=== PATIENT | male | born 1975 | race Caucasian/White ===

== ENCOUNTER 2016-09-02 22:00 | Emergency (ER) | payer SELFPAY ==
[~2016-09-02] VITALS: Ht 190.5 cm; Wt 69.9 kg
[2016-09-02] MEDS ORDERED: IV NORMAL SALINE 1,000ML 1,000 ML ONE (22:12)
--- NOTE | 2016-09-02 22:28 | PHYS DOC ---
Adult General Chief Complaint Chief Complaint: hematemesis HPI HPI Patient is a 40 year old male who presents with complaint of hematemesis. Patient states his symptoms started less than an hour prior to arrival. Patient states that he has been outdoors for several hours the past few days. Patient states that he started feeling very fatigued earlier today and felt like he needed to rest. Patient states that he felt like he was getting dehydrated and overheated. Patient states that starting 45 minutes prior to arrival he had 2 episodes of emesis, the first being food and the second being bile. Patient states after the third and fourth episode he started having coffee-ground emesis and fresh red blood in his vomit. Patient had an episode of vomiting in the emergency department which appears to be coffee-ground emesis at this time. Patient has had no previous history of upper GI bleeding and denies any history of liver problems. Patient is not on any tenderness at this time. Patient states that the pain in his upper abdomen is sharp and rates his pain as 6-7 out of 10. Review of Systems Review of Systems Constitutional: Fatigue, denies fever or chills [] Eyes: Denies change in visual acuity, redness, or eye pain [] HENT: Denies nasal congestion or sore throat [] Respiratory: Denies cough or shortness of breath [] Cardiovascular: Denies chest pain or edema [] GI: Abdominal pain, hematemesis, denies bloody stools or diarrhea [] : Denies dysuria or hematuria [] Musculoskeletal: Denies back pain or joint pain [] Integument: Denies rash or skin lesions [] Neurologic: Denies headache, focal weakness or sensory changes [] Current Medications Current Medications Current Medications Medications (Trade) Dose Ordered Sig/William Start Time Stop Time Status Last Admin Dose Admin Famotidine (Pepcid) 20 mg 1X ONCE 09/02/16 22:15 09/02/16 22:16 UNV Fentanyl Citrate (Fentanyl 2ml Vial) 50 mcg PRN Q15MIN PRN 09/02/16 22:15 09/03/16 22:14 UNV Ondansetron HCl (Zofran) 4 mg 1X ONCE 09/02/16 22:15 09/02/16 22:16 UNV Sodium Chloride 1,000 ml @ 1,000 mls/hr Q1H 09/02/16 22:14 09/02/16 23:13 UNV Allergies Allergies Allergies Coded Allergies Type Severity Reaction Last Updated Verified Penicillins Allergy Intermediate 09/02/16 Yes morphine Allergy Intermediate 09/02/16 Yes Physical Exam Physical Exam Constitutional: Alert, afebrile, appears ill. [] HENT: Normocephalic, atraumatic, bilateral external ears normal, oropharynx moist, no oral exudates, nose normal. [] Eyes: PERRLA, EOMI, conjunctiva normal, no discharge. [] Neck: Normal range of motion, no tenderness, supple, no stridor. [] Cardiovascular:Heart rate regular rhythm, no murmur [] Lungs & Thorax: Bilateral breath sounds clear to auscultation [] Abdomen: Bowel sounds normal, soft, epigastric tenderness to palpation with guarding, no rebound tenderness, no masses, no pulsatile masses. [] Skin: Warm, dry, no erythema, no rash. [] Back: No tenderness, no CVA tenderness. [] Extremities: No tenderness, no cyanosis, no clubbing, ROM intact, no edema. [] Neurologic: Alert and oriented X 3, normal motor function, normal sensory function, no focal deficits noted. [] Current Patient Data Vital Signs Vital Signs Date Time Temp Pulse Resp B/P (MAP) Pulse Ox O2 Delivery O2 Flow Rate FiO2 09/02/16 22:10 98.0 66 18 99 Room Air Lab Results Laboratory Tests Test 09/02/16 22:12 White Blood Count 15.4 x10^3/uL Red Blood Count 4.15 x10^6/uL Hemoglobin 13.2 g/dL Hematocrit 39.1 % Mean Corpuscular Volume 94 fL Mean Corpuscular Hemoglobin 32 pg Mean Corpuscular Hemoglobin Concent 34 g/dL Red Cell Distribution Width 13.6 % Platelet Count 236 x10^3/uL Neutrophils (%) (Auto) 77 % Lymphocytes (%) (Auto) 15 % Monocytes (%) (Auto) 6 % Eosinophils (%) (Auto) 2 % Basophils (%) (Auto) 1 % Neutrophils # (Auto) 11.9 x10^3uL Lymphocytes # (Auto) 2.3 x10^3/uL Monocytes # (Auto) 0.9 x10^3/uL Eosinophils # (Auto) 0.2 x10^3/uL Basophils # (Auto) 0.1 x10^3/uL Platelet Estimate Pending Prothrombin Time 10.2 SEC Prothromb Time International Ratio 1.0 Activated Partial Thromboplast Time 24 SEC Sodium Level 140 mmol/L Potassium Level 3.6 mmol/L Chloride Level 106 mmol/L Carbon Dioxide Level 26 mmol/L Anion Gap 8 Blood Urea Nitrogen 25 mg/dL Creatinine 1.0 mg/dL Estimated GFR (Cockcroft-Gault) 82.8 BUN/Creatinine Ratio 25 Glucose Level 99 mg/dL Calcium Level 8.2 mg/dL Total Bilirubin 0.4 mg/dL Aspartate Amino Transf (AST/SGOT) 32 U/L Alanine Aminotransferase (ALT/SGPT) 27 U/L Alkaline Phosphatase 99 U/L Total Protein 7.2 g/dL Albumin 4.0 g/dL Albumin/Globulin Ratio 1.3 Lipase 220 U/L Current Medications Medications (Trade) Dose Ordered Sig/William Route PRN Reason Start Time Stop Time Status Last Admin Dose Admin Sodium Chloride 1,000 ml @ As Directed STK-MED ONCE .ROUTE 09/02/16 22:12 09/02/16 22:13 DC Fentanyl Citrate (Fentanyl 2ml Vial) 50 mcg PRN Q15MIN PRN IV PAIN GREATER THAN 3/10 09/02/16 22:15 09/03/16 22:14 09/02/16 23:11 Sodium Chloride 1,000 ml @ 1,000 mls/hr Q1H IV 09/02/16 23:00 09/02/16 23:59 09/02/16 22:30 Ondansetron HCl (Zofran) 4 mg 1X ONCE IV 09/02/16 23:00 09/02/16 23:01 DC 09/02/16 22:33 Famotidine (Pepcid) 20 mg 1X ONCE IVP 09/02/16 23:00 09/02/16 23:01 DC 09/02/16 22:33 Sodium Chloride 1,000 ml @ 1,000 mls/hr Q1H IV 09/02/16 23:01 09/03/16 00:00 09/02/16 23:01 Multi-Ingredient Mouthwash/Gargle (Gi Cocktail) 20 ml 1X ONCE PO 09/02/16 23:30 09/02/16 23:31 Metoclopramide HCl (Reglan) 10 mg 1X ONCE IV 09/02/16 23:15 09/02/16 23:16 UNV 09/02/16 23:11 Pantoprazole Sodium (Protonix Vial) 40 mg 1X ONCE IVP 09/02/16 23:15 09/02/16 23:16 UNV 09/02/16 23:12 EKG EKG Interpreted by me: Heart rate 64, sinus rhythm, normal intervals, normal axis, no acute ST/T-wave abnormalities present [] Radiology/Procedures Radiology/Procedures 3 view acute abdominal series interpreted by me: No pulmonary or effusions, no free air under the diaphragm, nonobstructive bowel gas pattern [] Course & Med Decision Making Course & Med Decision Making Pertinent Labs and Imaging studies reviewed. (See chart for details) Patient initially treated with IV fentanyl, Pepcid, fluids, and Zofran. After treatment, the patient had further episodes of emesis and is now passing bright red blood in his emesis. Due to persistent symptoms and possible for continued GI bleeding, the patient will need admission to the hospital for further evaluation and treatment. The patient will need a higher level of care as [facility] is unable to accommodate the patient for any possible need for emergent EGD. I spoke with Dr. Phan at [facility] who accepted the care of patient for transfer. Patient will be transferred by ground EMS. Dragon Disclaimer Dragon Disclaimer This chart was dictated in whole or in part using Voice Recognition software in a busy, high-work load, and often noisy Emergency Department environment. It may contain unintended and wholly unrecognized errors or omissions. Departure Departure: Impression: Primary Impression: Acute upper GI bleeding Disposition: XFER OTHER Condition: GUARDED Referrals: PCP,NO (PCP) RICARDA DANIELS MD Sep 02, 2016 22:28
[2016-09-02] MEDS: fentaNYL PF 100 MCG/2 ML VIAL IV PRN ×2 (22:33→23:11)
[2016-09-02 22:34] LABS: BASO # 0.1 x10^3/uL (0.0-0.2); BASO % 1 % (0-3); EOS # 0.2 x10^3/uL (0.0-0.7); EOS % 2 % (0-3); HEMATOCRIT 39.1 % (39.0-53.0); HEMOGLOBIN 13.2 g/dL (13.0-17.5); LYMPH # 2.3 x10^3/uL (1.0-4.8); LYMPH % 15 % (24-48); MEAN CORPUSCULAR HEMOGLOBIN 32 pg (25-35); MEAN CORPUSCULAR HGB CONC 34 g/dL (31-37); MEAN CORPUSCULAR VOLUME 94 fL (79-100); MONO # 0.9 x10^3/uL (0.0-1.1); MONO % 6 % (0-9); NEUT # 11.9 x10^3uL (1.8-7.7); NEUT % 77 % (31-73); PLATELET COUNT 236 x10^3/uL (140-400); RED BLOOD COUNT 4.15 x10^6/uL (4.30-5.70); RED CELL DISTRIBUTION WIDTH 13.6 % (11.5-14.5); WHITE BLOOD COUNT 15.4 x10^3/uL (4.0-11.0)
[2016-09-02 22:44] LABS: ALBUMIN/GLOBULIN RATIO 1.3 (1.0-1.7); CALCIUM 8.2 mg/dL (8.5-10.1); GFR 82.8; POTASSIUM 3.6 mmol/L (3.5-5.1); TOTAL BILIRUBIN 0.4 mg/dL (0.2-1.0); TOTAL PROTEIN 7.2 g/dL (6.4-8.2)
[2016-09-02] MEDS ORDERED: ONDANSETRON PF 4 MG/2 ML VIAL. IV ONE (23:00)
[2016-09-02] MEDS ORDERED: IV NORMAL SALINE 1,000ML 1,000 ML IV SCH ×2 (23:00→23:01)
[2016-09-02] MEDS ORDERED: FAMOTIDINE 20 MG/2 ML VIAL IVP ONE (23:00)
[2016-09-02 23:09] VITALS: BP 131/72
[2016-09-02] MEDS ORDERED: PANTOPRAZOLE IV PUSH 40 MG VIAL. IVP ONE (23:15)
[2016-09-02] MEDS ORDERED: METOCLOPRAMIDE HCL 10 MG/2 ML VIAL. IV ONE (23:15)
[2016-09-02] MEDS ORDERED: LIDO:MAALOX 1:1 20 ML SINGLE DOSE PO ONE (23:30)
[2016-09-02 23:34] LABS: % BANDS 3 % (0-9); % BASOS 2 % (0-3); % EOS 1 % (0-5); % LYMPHS 15 % (24-48); % MONOS 10 % (0-10); % SEGS 69 % (35-66)
[2016-09-02 23:35] LABS: PLT ESTIMATE ADEQUATE (ADEQUATE)
--- NOTE | 2016-09-03 05:40 | EKG ---
[address] [address] Test Date: 2016-09-02 Test Time: 22:38:52 Pat Name: LILLIAN JENSEN Department: Room: Gender: M Data Warehouse Architect: : [id number] Requested By: RICARDA DANIELS Order Number: [id number] Reading MD: Rafal Hughes Measurements Intervals [place] Rate: 64 P: 66 MA: 172 QRS: 66 QRSD: 88 T: 46 QT: 416 QTc: 433 Interpretive Statements SINUS RHYTHM LEFT ATRIAL ABNORMALITY NONSPECIFIC ST-T WAVE CHANGES. RI6.01 Unconfirmed report No previous ECG available for comparison Electronically Signed On 09-04-2016 11:01:30 CDT by Rafal Hughes
--- NOTE | 2016-09-03 08:19 | RAD ---
EXAM: Two view abdomen with one view chest HISTORY: Abdominal pain, nausea/vomiting, hematemesis. COMPARISON: None. FINDINGS: A frontal view of the chest and supine/upright views of the abdomen are obtained. There is pleural-parenchymal scarring in the apices. Hyperinflation indicates deep respiratory effort or chronic obstructive pulmonary disease. The hemidiaphragms are not flattened. There is no pneumothorax or pleural effusion. The heart is not enlarged. There is no pneumoperitoneum. There are no distended small bowel loops or significant air-fluid levels. There is gas distally. IMPRESSION: 1. Correlate for chronic obstructive pulmonary disease versus deep respiratory effort. No confluent infiltrates. 2. No evidence of obstruction.
== END 2016-09-03 00:04 | disposition short-term general hospital (02) ==
LOC: ER 22:00
DX: K92.2 Gastrointestinal hemorrhage, unspecified (principal); Z88.0 Allergy status to penicillin; Z88.5 Allergy status to narcotic agent
CPT/HCPCS: 36415; 74022; 80053; 83690; 85007; 85027; 85610; 85730; 86850; 86900; 86901; 93005; 96361; 96374; 96375; 96376; 99285; C9113; J2405; J2765; J3010; S0028; J7030